=== PATIENT | female | born 1980 | race Caucasian/White ===

== ENCOUNTER 2019-07-24 14:00 | Emergency (ER) | payer OTHER, SELFPAY ==
[2019-07-24 14:27] VITALS: BP 142/84; PULSE 68; RESP 16; TEMP 36.7; O2SAT 100
--- NOTE | 2019-07-24 14:40 | ED.URI ---
HPI - URI/Sore Throat General Chief Complaint: Upper Respiratory Infection Stated Complaint: SINUS CONGESTION/EARS/HEADACHE Time Seen by Provider: 07/24/19 14:40 Source: patient Mode of arrival: ambulatory Limitations: no limitations History of Present Illness HPI Narrative: A 39 y/o female, who is a smoker/nondrinker, presents to with c/o sinus congestion for 6 months. Pt states that she has not seen a doctor in regards to these complaints.She reports rhinorrhea, an earaches, and a ASCENCIO, but denies a fever, and a PSHx of sinus surgery. Pt has a PMHx of seasonal allergies and has a pet [cat] at home that occasionally sleeps in the same bedroom. Pt does not use any inhalers or nebulizers. Onset (ago): month(s) (6) Related Data Home Medications Medication Instructions Recorded Confirmed cetirizine [Zyrtec] 10 mg PO DAILY 07/24/19 07/24/19 Allergies Allergy/AdvReac Type Severity Reaction Status Date / Time Penicillins Allergy Mild Other Verified 07/24/19 14:34 penicillin G Allergy Unknown Other Verified 07/24/19 14:34 Review of Systems Review of Systems: Narrative: The patient has been informed that they may have pre-hypertension or Hypertension based on a BP reading in the department. I recommend that the patient call the primary care provider listed on their discharge instructions or a physician of their choice this week to arrange follow up for further evaluation of possible pre-hypertension or Hypertension General/Constitutional: Denies: weight loss,fever Eyes: Denies: Redness,discharge Ears/Nose/Throat: Reports: sinus congestion, rhinorrhea, earache; Denies: Epistaxis,ear discharge Respiratory: Denies: Hemoptysis Gastrointestinal: Denies: Vomiting, Bleeding-rectal Skin: Denies: Lumps, eruption Neurologic: Reports: ASCENCIO; Denies: Focal Weakness,Sz Hematologic: Denies: Petechiae/Purpura Psychiatric: Denies: Suicidal ideation All systems reviewed & are unremarkable except as noted in HPI and below PMFSH Past Medical History Medical History Arm fracture Bipolar disorder Depression Hyperthyroidism Panic attacks Seasonal allergies Surgical History Surgical History H/O tubal ligation Family History Family History Mother Family history of coronary artery disease Social History Social History (Updated 07/24/19 @ 14:58 by Selam Jay) Smoking packs per day: 1 Smoking cigarettes per day: 20.0 Smoking status: Current every day smoker Alcohol intake: never Comments No PCP on file. At time of signature, agree with nursing past medical, surgical, social and family history. There is no relevant family history pertinent to the presenting complaint Exam Narrative: Exam Narrative: General Appearance: Well appearing, Well nourished EYE: PERRLA, Conjunctiva clear Ears: Auditory canal normal, TM normal Nose: Rhinorrhea, Mucousal erythema Mouth/Throat: MM moist, Uvula midline, Pharyngeal erythema Neck: Supple, No adenopathy Respiratory: No respiratory distress, Breath sounds equal, Clear to auscultation Cardiovascular: RRR, No JVD Musculoskeletal: Non tender, Normal strength Skin: Warm, Dry Neurological: A&O x3, CN II-XII intact Psychiatric: Normal mood, Normal affect Course Vital Signs Vital signs: Vital Signs Temperature 98.1 F 07/24/19 14:27 Pulse Rate 68 07/24/19 14:27 Respiratory Rate 16 07/24/19 14:27 Blood Pressure 142/84 H 07/24/19 14:27 Pulse Oximetry 100 07/24/19 14:27 Temperature 98.1 F 07/24/19 14:27 Pulse Rate 68 07/24/19 14:27 Respiratory Rate 16 07/24/19 14:27 Blood Pressure 142/84 H 07/24/19 14:27 Pulse Oximetry 100 07/24/19 14:27 Discharge Plan Discharge Clinical Impression: Otalgia, bilateral Sinusitis Qualifiers: Sinusitis location: unspecified location Chron
== END 2019-07-24 14:56 | disposition home or self-care (01) ==
PROVIDERS: Emergency Provider Emergency Medicine
DX: J01.90 Acute sinusitis, unspecified (principal); H92.03 Otalgia, bilateral; E05.90 Thyrotoxicosis, unspecified without thyrotoxic crisis or storm
CPT/HCPCS: 99213; G0463

== ENCOUNTER 2021-12-16 12:02 | Emergency (ER) | payer OTHER, SELFPAY ==
--- NOTE | 2021-12-16 12:09 | ED.EAR ---
HPI - Ear Problem General Chief complaint: Ear Stated complaint: swimmers ear, sinus pressure Time Seen by Provider: 12/16/21 12:13 Source: patient and RN notes reviewed Mode of arrival: ambulatory Limitations: no limitations History of Present Illness HPI Narrative: 41-year-old female presents concern for bilateral ear pain for 4 days. She reports she is also been having sinus pressure and congestion with mild runny nose for 4 days. Reports she went swimming and is concerned for swimmer's ear. She denies any drainage from her ears. Reports muffled hearing and feeling a popping in her ears. She reports trying multisymptom cold medicine several times without relief. She denies fever, cough. Denies known sick contact MD Complaint: ear pain Related Data Allergies Allergy/AdvReac Type Severity Reaction Status Date / Time Penicillins Allergy Mild Other Verified 12/16/21 12:16 penicillin G Allergy Unknown Other Verified 12/16/21 12:16 Review of Systems Review of Systems: CONSTITUTIONAL: Denies malaise, chills, sweats, or fever. EYES: Denies visual changes, redness, or discharge. ENT: Reports rhinorrhea, congestion. Denies sinus pain, and sore throat. Reports bilateral ear pain, fullness CARDIOVASCULAR: Denies chest pain, palpitations, or edema. RESPIRATORY: Denies cough. Denies dyspnea. GASTROINTESTINAL: Denies abdominal pain, nausea, vomiting, diarrhea SKIN: Denies rash or itching. MUSCULOSKELETAL: Denies myalgia. NEUROLOGIC: Denies headache. All systems reviewed & are unremarkable except as noted in HPI and below PMFSH Past Medical History Medical History (Updated 12/16/21 @ 12:22 by Alyssa Trinidad NP) Arm fracture Bipolar disorder Depression Hyperthyroidism Panic attacks Seasonal allergies Surgical History Surgical History H/O tubal ligation Family History Family History Mother Family history of coronary artery disease Social History Social History (Updated 07/24/19 @ 14:58 by Selam Jay) Smoking packs per day: 1 Smoking cigarettes per day: 20.0 Smoking status: Current every day smoker Alcohol intake: never Comments At time of signature, agree with nursing past medical, surgical, social and family history. There is no relevant family history pertinent to the presenting complaint Exam Narrative: GENERAL: Well-appearing, well-nourished, and in no acute distress. HEAD: Normocephalic EYES: PERRLA, conjunctivae clear ENT: Nares clear, clear discharge. Mucous membranes moist. TM pearly ray with dull light reflex bilaterally; no tragal tenderness, EAC unremarkable, no drainage noted. Oropharynx not erythematous without lesions. Tonsils not enlarged and without exudate, no drooling, no hoarseness, no trismus, uvula midline. NECK: Supple. No lymphadenopathy CHEST: Clear to auscultation, breath sounds equal. No wheezing, rhonchi, rales, or stridor. No respiratory distress, speaks in full sentences. HEART: Regular rate and rhythm. No murmur heard. SKIN: Warm, dry, no rash. NEURO: Alert and oriented x3. PSYCH: Normal mood and affect Course Course Emergency Course: Patient is aware of diagnosis, understands and agrees to treatment plan. Anticipatory guidance given. Patient agrees to follow-up as directed and is aware of reasons to seek care at the emergency department. Portions of this record may have been created with voice recognition software Level of Care: Express Care Visit Vital Signs Vital signs: Reviewed. Medical Decision Making MDM Narrative Medical decision making narrative: Differential diagnosis considered: Hernandez virus, strep pharyngitis, allergic rhinitis, upper respiratory tract infection, sinusitis, rhinosinusitis, nasopharyngitis. viral pharyngitis, otitis media, otitis externa, otitis effusion, cerumen impaction, foreign body. Exam findings show no acute concerns or change
[2021-12-16 12:14] VITALS: BP 153/103; PULSE 81; RESP 16; TEMP 37.1; O2SAT 100
== END 2021-12-16 12:27 | disposition home or self-care (01) ==
PROVIDERS: Emergency Provider Nurse Practitioner
DX: H69.93 Unspecified Eustachian tube disorder, bilateral (principal); J32.9 Chronic sinusitis, unspecified; F17.210 Nicotine dependence, cigarettes, uncomplicated; E05.90 Thyrotoxicosis, unspecified without thyrotoxic crisis or storm
CPT/HCPCS: 99213; G0463

== ENCOUNTER 2021-12-17 14:30 | Emergency (ER) | payer OTHER, SELFPAY ==
[2021-12-17 14:41] VITALS: BP 164/108; PULSE 78; RESP 20; TEMP 36.7; O2SAT 100
--- NOTE | 2021-12-17 15:16 | ED.URI ---
HPI - URI/Sore Throat General Chief Complaint: Upper Respiratory Infection Stated Complaint: sinus Time Seen by Provider: 12/17/21 15:10 Source: patient, RN notes reviewed and old records reviewed Mode of arrival: ambulatory Limitations: no limitations History of Present Illness HPI Narrative: 41 year old female who presents to [facility] for rehabilitation care with complaints of increased stated symptoms since seen yesterday and wants amoxicillin antibiotic. Patient reports that she got Prednisone Rx and she has been taking and she has been taking multiple OTC medications for her sinus pressure and headache pain. She reports that she is coughing and feels weak, denies any shortness of breath Onset (ago): day(s) (5) Pain scale (0-10): 8 Related Data Allergies Allergy/AdvReac Type Severity Reaction Status Date / Time Penicillins Allergy Mild Other Verified 12/17/21 14:50 penicillin G Allergy Unknown Other Verified 12/17/21 14:50 Review of Systems Review of Systems: CONSTITUTIONAL: Denies fever, chills, or sweats. EYES: Denies visual changes, redness, or discharge. ENT: Positive rhinorrhea, congestion,no sore throat, bilateral ear otalgia. CARDIOVASCULAR: Denies chest pain, palpitations, or edema. RESPIRATORY: Positive for cough denies dyspnea. GASTROINTESTINAL: Denies abdominal pain, nausea, vomiting, or diarrhea. GENITOURINARY: Denies dysuria or hematuria. SKIN: Denies rash or itching. MUSCULOSKELETAL: Denies back pain, joint pain, or myalgia. NEUROLOGIC: Positive for frontal headache,no numbness, or weakness. PSYCHIATRIC: Positive for anxiety or depression. All systems reviewed & are unremarkable except as noted in HPI and below PMFSH Past Medical History Medical History (Updated 12/17/21 @ 22:14 by Judith Turner NP) Arm fracture Bipolar disorder Depression Hyperthyroidism Panic attacks Seasonal allergies Surgical History Surgical History (Updated 12/17/21 @ 21:59 by Judith Turner NP) H/O tubal ligation History of hysterectomy History of surgery on arm at age 6 for fracture Family History Family History (Updated 12/17/21 @ 22:00 by Judith Turner NP) Mother Family history of coronary artery disease Diabetes mellitus Hypertension Depression Social History Social History (Updated 12/17/21 @ 22:00 by Judith Turner NP) Smoking packs per day: 1 Smoking cigarettes per day: 20.0 Smoking status: Current every day smoker Alcohol intake: former Substance use type: does not use Living arrangements: with family Gender identity (if verbalized by the patient): Female Comments At time of signature, agree with nursing past medical, surgical, social and family history. There is no relevant family history pertinent to the presenting complaint Exam Narrative: GENERAL: Well-appearing, well-nourished, and in no acute distress. HEAD: Normocephalic, atraumatic. EYES: PERRLA and EOMI. ENT: Nares with minimal redness, clear rhinorrhea NO epistaxis. Mucous membranes moist.TM's normal with dull light reflex, throat pink with no lesions exudates or tonsil swelling NECK: Supple. no lymphadenopathy CHEST: Clear to auscultation. No respiratory distress.dry cough, no Tachypnea speaks in full sentences, SAO2 100% on room air HEART: Regular rate and rhythm. No murmur heard. Normal peripheral pulses. ABDOMEN: Soft, nontender, nondistended, normal active bowel sounds. EXTREMITIES: Normal range of motion. No edema. SKIN: Warm, dry, no rash. NEURO: No focal deficits. Alert and oriented x3. Course Course Level of Care: Express Care Visit Vital Signs Vital signs: Vital Signs Temperature 36.7 C 12/17/21 14:41 Pulse Rate 78 12/17/21 14:41 Respiratory Rate 12/17/21 14:41 Blood Pressure 164/108 H 12/17/21 14:41 Pulse Oximetry 100 12/17/21 14:41 Oxygen Delivery Room Air 12/17/21 14:41 Temperature 36.7 C 12/17/21 14:41 Pulse Rate 78 12/17/21 14:41 Respiratory Rate 12/17/21 14:41
== END 2021-12-17 15:28 | disposition home or self-care (01) ==
PROVIDERS: Emergency Provider Registered Nurse
DX: J06.9 Acute upper respiratory infection, unspecified (principal); R05.9 Cough, unspecified; F17.210 Nicotine dependence, cigarettes, uncomplicated; E05.90 Thyrotoxicosis, unspecified without thyrotoxic crisis or storm
CPT/HCPCS: 99213; G0463

== ENCOUNTER 2023-12-10 09:40 | Emergency (ER) | payer OTHER, SELFPAY ==
--- NOTE | ~2023-12-10 | CT_ITS ---
EXAMINATION: 1. CT facial & cervical spine wo DATE: 12/10/2023 10:14 INDICATION: Fall with head injury TECHNIQUE: 1. Computed tomography (CT) of the maxillofacial region and of the cervical spine were performed with out intravenous contrast. Sagittal and coronal reconstructions of both regions were obtained. Automat ed exposure control and iterative reconstruction technique were employed. The dose-length product was 260.15 mGy-cm. COMPARISON: None. FINDINGS: Maxillofacial CT: Preseptal soft tissue swelling at the right orbit with small high attenuation hematomas at the right malar region and along the superolateral right orbital rim. Orbits appear otherwise normal with intac t appearing globes and no post septal inflammatory stranding. No maxillofacial fractures. Specificall y the nasal bones, zygomatic arches, mandible and camacho of the orbits and paranasal sinuses are all i ntact. Paranasal sinuses, mastoid air cells and middle ear cavities are all clear. Patient is edentul ous with dentures in place and alveolar ridge resorption along the mandible and maxilla. Cervical spine CT: There is straightening of the normal cervical lordosis. Vertebral body and disc heights are normal. N o fracture. No central canal stenosis. Minimal to mild uncovertebral osteoarthritis. Moderate to humberto re cervical facet osteoarthritis contributing to mild neural foraminal stenosis on the right at C3-C4 and on the left at C2-C3 through C4-C5. Moderate facet osteoarthritis bilaterally at C7-T1 and mild facet osteoarthritis at the remaining levels. Cervical soft tissues are unremarkable. Visualized apic es of lungs are clear. IMPRESSION: 1. No acute maxillofacial or cervical osseous abnormality. 2. Bilateral moderate to severe facet osteoarthritis continue to mild neural foraminal stenosis at a few levels in the upper cervical spine. Reviewed, dictated and finalized at location B. IMPRESSION: 1. No acute maxillofacial or cervical osseous abnormality. 2. Bilateral moderate to severe facet osteoarthritis continue to mild neural fo raminal stenosis at a few levels in the upper cervical spine.
--- NOTE | ~2023-12-10 | CT_ITS ---
EXAMINATION: CT brain wo con DATE: 12/10/2023 10:14 INDICATION: Right eye bruising post fall with head injury TECHNIQUE: Computed tomography (CT) of the head was performed without intravenous contrast. Sagittal and coronal reconstructions were performed. The mA was adjusted according to patient size. Iterative reconstruction technique was employed. The dose-length product was 605.33 mGy-cm. COMPARISON: None FINDINGS: Preseptal soft tissue swelling at the right orbit with 1.8 x 1.2 cm low-attenuation likely hematoma a long the right superior orbital rim. Orbits . Otherwise normal with intact appearing globes and no po st septal inflammatory stranding. No fracture. No acute intracranial hemorrhage, acute infarction or abnormal extra axial fluid collection. Ventricles are normal and symmetric. No mass/mass effect. The paranasal sinuses and mastoid air cells are normal. IMPRESSION: 1. Small subcutaneous hematoma along the right supraorbital rim. 2. Normal brain. No fracture or acute intracranial process. Reviewed, dictated and finalized at location B.
[2023-12-10 09:50] VITALS: BP 168/74; PULSE 87; RESP 16; TEMP 37; O2SAT 98
[2023-12-10] MEDS: FLUORESCEIN SOD 1 MG/STRIP (11:51)
[2023-12-10] MEDS: TETRACAINE HCL 0.5% OPHTH SOLN 4 ML BTL 1 DROP (11:52)
[2023-12-10] MEDS: HYDROcodone/acetaminophen (*CRX) 5-325 MG TABLET 1 TAB PO (12:14)
[2023-12-10 12:15] VITALS: BP 156/98; PULSE 79; RESP 18; O2SAT 100
[2023-12-10] MEDS: KETOROLAC 30 MG/ML VIAL (*BKC) IM (12:15)
--- NOTE | 2023-12-10 12:25 | ED.GENADULT ---
HPI - General Adult General Chief complaint: Head Injury Stated complaint: fall Time Seen by Provider: 12/10/23 11:37 History of Present Illness HPI narrative: Trista Moralez is a 43 y/o female who presents today after a mechanical ground level fall two days ago. She stats she fell and hit her right eye on the coffee table, no LOC. She states it didn't seem too bad but then it has started to swell around her right eye and bruise Related Data Home Medications Medication Instructions Recorded Confirmed cyclobenzaprine 5 mg tablet 5 mg PO 09/29/23 10/29/23 Allergies Allergy/AdvReac Type Severity Reaction Status Date / Time Penicillins Allergy Mild Other Verified 12/10/23 11:30 penicillin G Allergy Unknown Other Verified 12/10/23 11:30 Review of Systems Review of Systems: All systems reviewed & are unremarkable except as noted in HPI and below PMFSH Past Medical History Medical History Arm fracture Bipolar disorder Depression Hyperthyroidism Panic attacks Seasonal allergies Surgical History Surgical History H/O colposcopy with cervical biopsy H/O LEEP H/O tubal ligation History of hysterectomy History of surgery on arm at age 6 for fracture Family History Family History Mother Family history of coronary artery disease Diabetes mellitus Hypertension Depression Social History Social History Smoking packs per day: 1 Smoking cigarettes per day: 20.0 Smoking status: Current every day smoker Alcohol intake: current Alcohol use details: occasional Substance use type: does not use Do You Feel Safe in your Home?: Yes Lack of Transportation: No Lack of Food: Never True Current Housing: I Have Housing Concerned About Future Housing: No Difficulty Paying Gas/Electric Bills: No Difficulty Paying for Meds: No Currently Unemployed: No Living arrangements: with family Occupation/Education: occupation Gender identity (if verbalized by the patient): Female Exam Narrative: GENERAL: Well-appearing, well-nourished, and in no acute distress. HEAD: Moderate swelling and ecchymosis around the right eye - she is able to open her eye lids on her own EYES: PERRLA and EOMI no nystagmus noted right eye + subconjunctival hemorrhage to the lateral sclera ENT: Nares clear, no rhinorrhea or epistaxis. Mucous membranes moist. Oropharynx without tonsillar hypertrophy exudate or other lesions. NECK: Supple. No adenopathy or masses. No carotid bruits or JVD CHEST: Clear to auscultation. No respiratory distress. No wheezes rales or rhonchi HEART: Regular rate and rhythm. No murmur heard. Normal peripheral pulses. ABDOMEN: Soft, nontender, nondistended, normal active bowel sounds. EXTREMITIES: Normal range of motion. No edema. SKIN: Warm, dry, no rash. NEURO: No focal deficits. Alert and oriented x3. PSYCH: Normal mood and affect. Course Vital Signs Vital signs: Vital Signs Temperature 37.0 C 12/10/23 09:50 Pulse Rate 87 12/10/23 09:50 Respiratory Rate 16 12/10/23 09:50 Blood Pressure 168/74 H 12/10/23 09:50 Pulse Oximetry 98 12/10/23 09:50 Temperature 37.0 C 12/10/23 09:50 Pulse Rate 79 12/10/23 12:15 Respiratory Rate 18 12/10/23 12:15 Blood Pressure 156/98 H 12/10/23 12:15 Pulse Oximetry 100 12/10/23 12:15 Medical Decision Making [facility] Narrative Medical decision making narrative: 43 y/o SLMF 2 days ago Moderate swelling/ ecchymosis around the right eye tetracaine/ fluorescein with garcia lamp completed - pupils equal and reactive / EOM is intact no nystagmus / Positive subconjunctival hemorrhage on the latera aspect of the sclera visual acuity - 20/20 bilaterally Imaging : 1. Small subcutaneous hematoma along the right
== END 2023-12-10 13:17 | disposition home or self-care (01) ==
PROVIDERS: Emergency Provider Nurse Practitioner Family
DX: H11.30 Conjunctival hemorrhage, unspecified eye (principal); M47.812 Spondylosis without myelopathy or radiculopathy, cervical region; W18.09XA Striking against other object with subsequent fall, initial encounter; F32.A Depression, unspecified; E05.90 Thyrotoxicosis, unspecified without thyrotoxic crisis or storm; F17.210 Nicotine dependence, cigarettes, uncomplicated
CPT/HCPCS: 70450; 70486; 72125; 96372; 99284; A9270; J1885

== ENCOUNTER 2024-11-28 13:55 | Emergency (ER) | payer OTHER, SELFPAY ==
[2024-11-28 14:00] VITALS: BP 156/86; PULSE 64; RESP 16; TEMP 36.5; O2SAT 100
--- NOTE | 2024-11-28 14:09 | ED.GENADULT ---
HPI - General Adult General Chief complaint: Unspecified Stated complaint: requesting work note Time Seen by Provider: 11/28/24 14:09 Source: patient and RN notes reviewed Mode of arrival: ambulatory Limitations: no limitations History of Present Illness HPI narrative: 44 y/o WF in the ED for c/o N/V X2 days s/p eating Arabic food. Pt feels she has food poisoning, needing a work note stating she can go back to work FridayDecember 01. Pt endorses vomiting 4 or 5 times since start of complaint. Denies any vomiting today. Pt taking no anti-emetics OTC, but drinking water and Under Armor (electrolyte drink). Pt denies any abd pain, CP, SOB, dizziness, and diarrhea. Pt endorses occasional marijuana use, denies hx of CVS. Pt endorses partial hysterectomy, no period in years. pt denies any issues w/ BMs, last BM this am. Related Data Home Medications ?Medication ?Instructions ?Recorded ?Confirmed ?Last Taken ?Type cyclobenzaprine 5 mg tablet 5 mg PO 09/29/23 10/29/23 Unknown History Allergies Allergy/AdvReac Type Severity Reaction Status Date / Time Penicillins Allergy Mild Other Verified 12/10/23 11:30 penicillin G Allergy Unknown Other Verified 12/10/23 11:30 Review of Systems Review of Systems: CONSTITUTIONAL: Denies fever, chills, or sweats. EYES: Denies visual changes, redness, or discharge. ENT: Denies rhinorrhea, congestion, sore throat, or otalgia. CARDIOVASCULAR: Denies chest pain, palpitations, or edema. RESPIRATORY: Denies cough or dyspnea. GASTROINTESTINAL: Denies abdominal pain and diarrhea. Endorses nausea and vomiting GENITOURINARY: Denies dysuria or hematuria. SKIN: Denies rash or itching. MUSCULOSKELETAL: Denies back pain, joint pain, or myalgia. NEUROLOGIC: Denies headache, numbness, or weakness. PSYCHIATRIC: Denies anxiety or depression. All systems reviewed & are unremarkable except as noted in HPI and below PMFSH Past Medical History Medical History Panic attacks Depression Bipolar disorder Hyperthyroidism Arm fracture Seasonal allergies Surgical History Surgical History H/O LEEP H/O colposcopy with cervical biopsy History of hysterectomy History of surgery on arm at age 6 for fracture H/O tubal ligation Family History Family History Mother Family history of coronary artery disease Diabetes mellitus Hypertension Depression Social History Social History Smoking packs per day: 1 Smoking cigarettes per day: 20.0 Smoking status: Current every day smoker Alcohol intake: current Alcohol use details: occasional Substance use type: does not use Do You Feel Safe in your Home?: Yes Lack of Transportation: No Lack of Food: Never True Current Housing: I Have Housing Concerned About Future Housing: No Difficulty Paying Gas/Electric Bills: No Difficulty Paying for Meds: No Currently Unemployed: No Living arrangements: with family Occupation/Education: occupation Gender identity (if verbalized by the patient): Female Exam Narrative: GENERAL: Well-appearing, well-nourished, and in no acute distress. HEAD: Normocephalic, atraumatic. EYES: PERRLA and EOMI. ENT: Nares clear, no rhinorrhea or epistaxis. Mucous membranes moist. NECK: Supple. CHEST: Clear to auscultation. No respiratory distress. HEART: Regular rate and rhythm. No murmur heard. Normal peripheral pulses. ABDOMEN: Soft, nontender, nondistended, normal active bowel sounds. EXTREMITIES: Normal range of motion. No edema. SKIN: Warm, dry, no rash. NEURO: No focal deficits. Alert and oriented x3. PSYCH: Normal mood and affect. Course Vital Signs Vital signs: Vital Signs Temperature 36.5 C 11/28/24 14:00 Pulse Rate 64 11/28/24 14:00 Respiratory Rate 16 11/28/24 14:00 Blood Pressure 156/86 H 11/28/24 14:00 Pulse Oximetry 100 11/28/24 14:00 Oxygen Delivery Room Air 11/28/24 14:00 Temperature 36.5 C 11/28/24 14:00 Pulse Rate 64 11/28/24 14:00 Respiratory Rate 16 11/28/24 14:00 Blood Pressure 156/86 H 11/28/24 14:00 Pulse Oximetry 100 11/28/24 14:00 Oxygen Delivery Room Air 11/28/24 14:00 Medical Decision Making MDM Narrative Medical decision making narrative: Pt has elevated BP, denies hx of HTN, but is actively trying to obtain a PCP. Pt otherwise well appearing. Pt to continue PO water intake and rest. Will supply RTW note for pt. Differential Diagnosis Differential Diagnosis: Migraine, AGE, CVS, PUD, Bowel obstruction Medical Records Medical records reviewed: Yes I reviewed the external patient's medical records. Vital Signs Vital Signs: Vital Signs Temperature 36.5 C 11/28/24 14:00 Pulse Rate 64 11/28/24 14:00 Respiratory Rate 16 11/28/24 14:00 Blood Pressure 156/86 H 11/28/24 14:00 Pulse Oximetry 100 11/28/24 14:00 Oxygen Delivery Room Air 11/28/24 14:00 Temperature 36.5 C 11/28/24 14:00 Pulse Rate 64 11/28/24 14:00 Respiratory Rate 16 11/28/24 14:00 Blood Pressure 156/86 H 11/28/24 14:00 Pulse Oximetry 100 11/28/24 14:00 Oxygen Delivery Room Air 11/28/24 14:00 Discharge Plan Discharge Clinical Impression: Food poisoning Patient Disposition: Home Condition: Stable Instructions: Antibiotic Form, Food Poisoning (ED), Foodborne Illness (DC) Additional Instructions: Continue to drink water and electrolyte drinks (Under Armor)., at least 1/2 your body weight in ounces. Patient Language: Divehi Prescriptions: No Action cyclobenzaprine 5 mg tablet 5 mg PO meclizine 25 mg tablet 25 mg PO .bid prn Qty: 60 0RF Follow-up/Referrals: UNKNOWN,DOCTOR [Non-Staff] - Roger Tesfaye MD [Physician] - Stand Alone Forms: Work/School Release IP Time of Disposition: 14:24
== END 2024-11-28 14:41 | disposition home or self-care (01) ==
LOC: ANHED 14:28
PROVIDERS: Emergency Provider Registered Nurse Emergency
DX: A05.9 Bacterial foodborne intoxication, unspecified (principal); F31.9 Bipolar disorder, unspecified; E05.90 Thyrotoxicosis, unspecified without thyrotoxic crisis or storm; F17.210 Nicotine dependence, cigarettes, uncomplicated
CPT/HCPCS: 99281